=== PATIENT | female | born 1965 | race Hispanic/Latino ===

== ENCOUNTER 2023-08-10 01:32 | Emergency (ER) | payer MEDICAID, SELFPAY ==
[2023-08-10 01:38] VITALS: BP 149/89; PULSE 101; RESP 17; TEMP 36.1; O2SAT 100
--- NOTE | 2023-08-10 04:02 | ED.NAVMDI ---
HPI - Nausea/Vomiting/Diarrhea General Chief complaint: Nausea/Vomiting/Diarrhea Stated complaint: n/v/d Time Seen by Provider: 08/10/23 03:05 History of Present Illness HPI Narrative: Patient is a 58-year-old female presenting with vomiting and diarrhea. Patient is [place]-speaking, would like her daughter to interpret it was at bedside. Daughter states that the patient has a colonoscopy scheduled for later this morning. She took her bowel prep last night then developed diarrhea. States that she also had numerous episodes of emesis. This lasted for several hours so they came in for evaluation. States that she is feeling much better and she has not vomited for several hours. She denies any pain. No further concerns or complaints. Related Data Allergies Allergy/AdvReac Type Severity Reaction Status Date / Time No Known Allergies Allergy Verified 08/10/23 03:06 Review of Systems Review of Systems: All systems reviewed & are unremarkable except as noted in HPI and below Exam Narrative: GENERAL: Well-appearing, in no acute distress, pleasant cooperative HEAD: Normocephalic, atraumatic. EYES: PERRLA and EOMI. ENT: Mucous membranes moist. NECK: Supple. CHEST: No respiratory distress. HEART: Regular rate and rhythm. ABDOMEN: Soft, nontender, nondistended EXTREMITIES: Normal range of motion. SKIN: Warm, dry, no rash. NEURO: Alert and oriented x3. PSYCH: Normal mood and affect. Course Vital Signs Vital signs: Vital Signs Temperature 97 F L 08/10/23 01:38 Pulse Rate 101 H 08/10/23 01:38 Respiratory Rate 17 08/10/23 01:38 Blood Pressure 149/89 H 08/10/23 01:38 Pulse Oximetry 100 08/10/23 01:38 Oxygen Delivery Room Air 08/10/23 01:38 Temperature 97 F L 08/10/23 01:38 Pulse Rate 82 08/10/23 04:16 Respiratory Rate 20 08/10/23 04:16 Blood Pressure 149/89 H 08/10/23 01:38 Pulse Oximetry 96 08/10/23 04:16 Oxygen Delivery Room Air 08/10/23 01:38 MDM - Nausea/Vomiting/Diarrhea MDM Narrative Medical decision making narrative: 58-year-old female presenting with diarrhea and vomiting in the setting of bowel prep for colonoscopy this morning. Vitals are stable. Exam unremarkable. Abdomen is soft, nontender. Patient reports feeling much better, has not had any further episodes of emesis. Discussed with the patient that her symptoms are likely related to the bowel prep that she consumed last night. Feel that she is safe for discharge and to keep her colonoscopy this morning. Advised PCP follow-up. Appropriate return precautions given. Discharged in stable condition. Differential Diagnosis Differential diagnosis: Likely gastroenteritis, dehydration and other ( Medication reaction) Medical Records Attestation: I reviewed the patient's medical records. Critical Care Time Critical Care Time Critical Care Time: No Discharge Plan Discharge Clinical Impression: Nausea, vomiting, and diarrhea Patient Disposition: Home, Self-Care Condition: Stable Instructions: Antibiotic Form, Acute Nausea and Vomiting (ED), Acute Diarrhea (ED) Additional Instructions: Your symptoms have improved while being in the ER. We suspect they are related to the bowel prep you took earlier tonight in preparation for your colonoscopy. Please make sure to keep your appointment for your colonoscopy. Please follow-up with your primary care provider. Follow-up/Referrals: Freddy,TJ Sims [Primary Care Provider] -
[2023-08-10 04:16] VITALS: PULSE 82; RESP 20; O2SAT 96
== END 2023-08-10 04:16 | disposition home or self-care (01) ==
PROVIDERS: Emergency Provider Emergency Medicine; PCP Registered Nurse
DX: R11.2 Nausea with vomiting, unspecified (principal); R19.7 Diarrhea, unspecified
CPT/HCPCS: 99281